=== PATIENT | male | born 1975 | race Caucasian/White ===

== ENCOUNTER → 2016-05-03 | Outpatient (CLI) | payer MEDICAID | LOC: FIMAGING 17:50 | PROVIDERS: ATTEND Physician Assistant | DX: J45.909 Unspecified asthma, uncomplicated (principal) ==

== ENCOUNTER 2016-06-20 17:46 | Emergency (ER) | payer MEDICAID ==
[2016-06-20 17:55] VITALS: TEMP 97.5
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
[2016-06-20 19:21] VITALS: BP 118/78; PULSE 61; RESP 16; O2SAT 96
== END 2016-06-20 19:22 | disposition home or self-care (01) ==
DX: S09.90XA Unspecified injury of head, initial encounter (principal); W22.8XXA Striking against or struck by other objects, initial encounter

== ENCOUNTER 2017-10-28 16:36 | Emergency (ER) | payer MEDICAID ==
--- NOTE | 2017-10-28 17:10 | EDPHY ---
H & P Stated Complaint: Injury to RLE when he fell off skateboard Time Seen by Provider: 10/28/17 16:59 HPI/ROS: CHIEF COMPLAINT: Fall on skateboard HISTORY OF PRESENT ILLNESS: The patient is a 42-year-old man who comes to the emergency department complaining of is abrasions to his right knee and pain to his right hip and right heel after he fell off of a skateboard going downhill about an hour ago. He was ambulatory at the scene. He denies head neck or back injury. He has also some minor abrasions to the palms of his hands. Severity: Moderate Modifying factors: Some improvement with icing REVIEW OF SYSTEMS: Constitutional: denies: chills, fever, recent illness, recent injury EENTM: denies: blurred vision, double vision, nose congestion Respiratory: denies: cough, shortness of breath Cardiac: denies: chest pain, irregular heart rate, lightheadedness, palpitations Gastrointestinal/Abdominal: denies: abdominal pain, diarrhea, nausea, vomiting, blood streaked stools Genitourinary: denies: dysuria, frequency, hematuria, pain Musculoskeletal: See HPI Skin: See HPI Neurological: denies: headache, numbness, paresthesia, tingling, dizziness, weakness Hematologic/Lymphatic: denies: blood clots, easy bleeding, easy bruising Immunologic/allergic: denies: HIV/AIDS, transplant 10 systems reviewed and negative except as noted EXAM: GENERAL: Well-appearing, well-nourished and in no acute distress. HEAD: Atraumatic, normocephalic. EYES: Pupils equal round and reactive to light, extraocular movements intact, sclera anicteric, conjunctiva are normal. ENT: TMs normal, nares patent, oropharynx clear without exudates. Moist mucous membranes. NECK: Normal range of motion, supple without lymphadenopathy or JVD. LUNGS: Breath sounds clear to auscultation bilaterally and equal. No wheezes rales or rhonchi. HEART: Regular rate and rhythm without murmurs, rubs or gallops. ABDOMEN: Soft, nontender, normoactive bowel sounds. No guarding, no rebound. No masses appreciated. BACK: No CVA tenderness, no spinal tenderness, step-offs or deformities EXTREMITIES: Pain to the right heel with percussion. No low back pain. Pain to right hip but normal movement. Normal range of motion of right knee. NEUROLOGICAL: Cranial nerves II through XII grossly intact. Normal speech, normal gait. 5/5 strength, normal movement in all extremities, normal sensation , normal reflexes PSYCH: Normal mood, normal affect. SKIN: Abrasions to right knee, minor abrasions to the palms of both hands. Source: Patient Exam Limitations: No limitations - Personal History Current Tetanus Diphtheria and Acellular Pertussis (TDAP): Yes - Medical/Surgical History Hx Asthma: No Hx Chronic Respiratory Disease: No Hx Diabetes: No Hx Cardiac Disease: No Hx Renal Disease: No Hx Cirrhosis: No Hx Alcoholism: No Hx HIV/AIDS: No Hx Splenectomy or Spleen Trauma: No Other PMH: cervical neck issues/l knee surg/r shoulder inj - Family History Significant Family History: No pertinent family hx - Social History Smoking Status: Never smoked Alcohol Use: Sober Drug Use: None Constitutional: Initial Vital Signs Temperature (C) 36.7 C 10/28/17 16:37 Heart Rate 60 10/28/17 16:37 Respiratory Rate 16 10/28/17 16:37 Blood Pressure 136/100 H 10/28/17 16:37 O2 Sat (%) 97 10/28/17 16:37 O2 Delivery Mode Room Air Allergies/Adverse Reactions: No Known Allergies Allergy (Verified 10/28/17 16:37) Home Medications: Medication Instructions Recorded NK [No Known Home Meds] 06/20/16 Medical Decision Making - Diagnostics Imaging: Discussed imaging studies w/ call center consultant Radiologist Procedures: Procedure: Splint placement. A [place] boot splint was applied. After application of the splint I returned and re-examined the patient. The splint was adequately immobilizing the joint and distal to the splint the patient's circulation and sensation was intact. ED Course/Re-evaluation: 6:15 p.m. We discussed the x-ray results. The patient is reassured. I suspect he has an ankle sprain on the right. We placed him in a [place] boot. His wounds have been cleaned and dressed. He is happy with this and declines further workup or testing at this time. He is able to use his Achilles tendon without tenderness. Differential Diagnosis: Partial list of the Differential diagnosis considered include but were not limited to; ankle sprain, ankle fracture, calcaneus fracture, abrasions and although unlikely based on the history and physical exam, I also considered hip fracture. I discussed these differential diagnoses and the plan with the [ patient] as well as the usual and expected course. The [patient understands] that the diagnosis is provisional and that in medicine we are not always correct and that further workup is often warranted. Usual and customary warnings were given. All of the [patient's] questions were answered. The [ patient was] instructed to return to the emergency department should the symptoms at all worsen or return, otherwise to followup with the physician as we discussed. - Data Points Medications Given: Discontinued Medications Hydrocodone Bitart/Acetaminophen ([place] 5/325mg Prepack#6) 1 btl TAKEHOME EDNOW ONE Stop: 10/28/17 18:45 Last Admin: 10/28/17 18:52 Dose: 1 btl Departure - Departure Disposition: Home, Routine, Self-Care Clinical Impression: Abrasion Right ankle sprain Qualifiers: Encounter type: initial encounter Involved ligament of ankle: unspecified ligament Qualified Code(s): S93.401A - Sprain of unspecified ligament of right ankle, initial encounter Condition: Fair Instructions: Hydrocodone/Acetaminophen (By mouth), Ankle Sprain (DC), Abrasion (ED) Referrals: NONE *PRIMARY CARE P,. [Primary Care Provider] - As per Instructions Олег Mckenna MD [Medical Doctor] - As per Instructions
[2017-10-28] MEDS ORDERED: HYDROCOD/APAP 5/325 PREPACK#6 BTL TAKEHOME ONE (18:44)
[2017-10-28 18:58] VITALS: BP 119/78
== END 2017-10-28 18:58 | disposition home or self-care (01) ==
DX: S93.401A Sprain of unspecified ligament of right ankle, initial encounter (principal); S80.211A Abrasion, right knee, initial encounter; V00.131A Fall from skateboard, initial encounter; Y93.51 Activity, roller skating (inline) and skateboarding; Y92.410 Unspecified street and highway as the place of occurrence of the external cause; Y99.8 Other external cause status